=== PATIENT | male | born 1955 | race Caucasian/White ===

== ENCOUNTER 2020-01-22 07:30 | Outpatient (CLI) | payer BC, SELFPAY ==
--- NOTE | ~2020-01-22 | XR_ITS ---
EXAMINATION: XR chest 2V 01/22/2020 08:21 INDICATION: Malignant neoplasm of the left kidney PROCEDURE: 2 view chest COMPARISON: 03/10/2010 FINDINGS: The lungs are clear. The cardiomediastinal silhouette is within normal limits. There are no pleural effusions. There is no pneumothorax suspected. IMPRESSION: 1: NO ACUTE CARDIOPULMONARY DISEASE. Reviewed, dictated and finalized at location B.
--- NOTE | ~2020-01-22 | CT_ITS ---
EXAMINATION: CT abdomen wo/w con DATE: 01/22/2020 08:21 INDICATION: Malignant neoplasm of left kidney TECHNIQUE: Computed tomography (CT) of the abdomen and pelvis was performed without intravenous contr ast. Automated exposure control and iterative reconstruction technique were employed. Exam dose: 816 .50 mGy-cm total exam DLP. COMPARISON: 12/22/2018 CT abdomen FINDINGS: The lung bases are clear. Normal heart size. No pericardial or pleural effusion. There is hepatic steatosis. No hepatic, splenic, pancreatic or adrenal space-occupying mass lesion. T he gallbladder is present. No bile duct dilatation or pancreatic duct dilatation or pancreatic calcif ication. Partial left nephrectomy. Small stable probable right renal cyst. No urinary tract calculus or hydrou reteronephrosis. There is atherosclerotic calcification of the abdominal aorta. No intraperitoneal or retroperitoneal mass lesion or adenopathy or ascites. Diverticulosis of the colon. No bowel obstruction, bowel wall thickening, pneumatosis or intraperiton eal free air. Small fat-containing umbilical hernia. Diffuse idiopathic skeletal hyperostosis of the thoracic spine. There are mild degenerative changes o f the lumbar spine. There is prominent degenerative change at the apophyseal joints of the lower lumb ar and lumbosacral area with associated grade 1 anterolisthesis at L4-5. IMPRESSION: Hepatic steatosis Status post left partial nephrectomy for history of renal cancer; no recurrence evident Stable small right renal probable cysts Diverticulosis of the colon Reviewed, dictated and finalized at Location A. Reviewed, dictated and finalized at location A.
[2020-01-22 08:08] LABS: Estimated Glomerular Filt Rate > 60
== END 2020-01-22 07:31 | disposition home or self-care (01) ==
LOC: ANHIMG 07:37
PROVIDERS: PCP Family Medicine; Visit Provider Urology
DX: C64.2 Malignant neoplasm of left kidney, except renal pelvis (principal); K57.30 Diverticulosis of large intestine without perforation or abscess without bleeding; K76.0 Fatty (change of) liver, not elsewhere classified
CPT/HCPCS: 36415; 71046; 74170; Q9967

== ENCOUNTER 2020-04-29 01:09 | Outpatient (CLI) | payer BC, SELFPAY ==
[2020-04-29 17:41] LABS: SARS-CoV-2 RNA PCR Negative
== END 2020-04-29 01:10 | disposition home or self-care (01) ==
LOC: ANHCOVIDDT 01:09
PROVIDERS: PCP Family Medicine; Visit Provider Internal Medicine Gastroenterology
DX: Z20.828 Contact with and (suspected) exposure to other viral communicable diseases (principal); Z01.812 Encounter for preprocedural laboratory examination
CPT/HCPCS: 87635; C9803; U0003

== ENCOUNTER 2020-05-01 01:19 | Day surgery (SDC) | payer BC, SELFPAY ==
[2020-04-24 14:30] VITALS: BMI 27.8
[2020-05-01 08:16] VITALS: BP 141/89; PULSE 63; RESP 16; TEMP 36.6; O2SAT 100; BMI 27.5
[2020-05-01] MEDS: LACTATED RINGERS 1,000 ML 150 ML IV CONT (08:28)
--- NOTE | 2020-05-01 08:39 | P.PNAN_ITS ---
Anes - Initial Pre Proc Eval Procedure: Operation Date: 05/01/20 09:00 Proposed Procedures p Screening Colonoscopy - Michael Shepherd MD Date/Time: 05/01/20 08:39 Surgeon: Michael Shepherd MD Pre Op Diagnosis: Neoplasm Screening Patient Data Age: 65 Gender: M Height: 5 ft 10 in Weight: 87.1 kg Last Vital Signs Temp 97.9 F 05/01/20 08:16 Pulse 63 05/01/20 08:16 Resp 16 05/01/20 08:16 BP 141/89 H 05/01/20 08:16 Pulse Ox 100 05/01/20 08:16 Allergies Allergy/AdvReac Type Severity Reaction Status Date / Time Bumble Bee Allergy Severe Anaphylaxis Uncoded 05/01/20 08:15 Wasp Allergy Severe Anaphylaxis Uncoded 05/01/20 08:15 Home Medications Medication Instructions Recorded Confirmed Type No Home Medications 04/24/20 04/24/20 History Patient hx anesthesia problems: none Family hx anesthesia problems: none PMFSH Past Medical History Medical History (Updated 03/19/20 @ 10:18 by Kendall Calixto MD) Malignant neoplasm of left kidney Right kidney stone (~07/2008) Spontaneous pneumothorax (~03/01/91) right Surgical History Surgical History (Updated 03/19/20 @ 10:18 by Kendall Calixto MD) History of bladder surgery stone removal 01/2018 History of partial nephrectomy 06/2018 - Left lower kidney tumor removal [place] teeth extracted Family History Family History Mother Diabetes mellitus Family history of cardiovascular disease Family history of Parkinson's disease Father Hypertension Family history of primary malignant neoplasm of liver Family history of malignant neoplasm of kidney Social History Social History Smoking status: Never smoker Second hand tobacco smoke exposure: No Alcohol intake: current Substance use: never Substance use type: does not use Living arrangements: with family Gender identity (if verbalized by the patient): Male Spiritual care concerns: No Anes - Eval Final PreProcedure Day of Procedure 05/01/20 08:39 Patient weight: normal Heart: regular rate and rhythm Lungs: clear to auscultation Airway: Mallampati scale class II Neurological: alert and oriented Last oral intake: >/= 8 hours ASA classification: II Emergent: no Anesthetic plan: proceed Anesthesia type and monitoring: general GIVS and standard monitoring Informed Consent: The patient's anesthetic plan and its attendant risks and benefits were discussed with the patient/family/POA. Questions were solicited and answers provided to the satisfaction of the patient/family/POA.
--- NOTE | 2020-05-01 08:49 | PM.HPGS ---
History of Present Illness History of Present Illness Consent: Risks, benefits, and alternatives have been discussed and questions answered. Patient agrees to proceed with procedure. Chief complaint: Neoplasm Screening Narrative: Wallace Rm is a 65 year old male here for first screening colonoscopy Review of Systems Constitutional: Constitutional: Denies headache(s) and Denies weakness Eyes: Eyes: Denies blurry vision ENT: Reports Normal hearing present, Denies headache(s) and Denies neck pain Cardiovascular: Cardiovascular: Denies chest pain and Denies dyspnea Respiratory: Respiratory: Denies dyspnea Gastrointestinal: Gastrointestinal: Reports no additional gastrointestinal complaints Genitourinary: Genitourinary: Denies dysuria Musculoskeletal: Musculoskeletal: Denies neck pain Integumentary/Breasts: Skin/Breast: Denies dry skin Neurologic: Reports Normal hearing present, Denies headache(s) and Denies weakness Psychiatric: Psychiatric: Denies anxiety Endocrine: Endocrine: Denies change in body appearance Hematologic/Lymphatic: Hematologic/Lymphatic: Denies easy bleeding Allergic/Immunologic: Allergic/Immunologic: Denies urticaria PMFSH Past Medical History Medical History (Updated 05/01/20 @ 08:50 by Michael Shepherd MD) Colon cancer screening Malignant neoplasm of left kidney Right kidney stone (~07/2008) Spontaneous pneumothorax (~03/01/91) right Surgical History Surgical History (Updated 03/19/20 @ 10:18 by Kendall Calixto MD) History of bladder surgery stone removal 01/2018 History of partial nephrectomy 06/2018 - Left lower kidney tumor removal [place] teeth extracted Family History Family History Mother Diabetes mellitus Family history of cardiovascular disease Family history of Parkinson's disease Father Hypertension Family history of primary malignant neoplasm of liver Family history of malignant neoplasm of kidney Social History Social History Smoking status: Never smoker Second hand tobacco smoke exposure: No Alcohol intake: current Substance use: never Substance use type: does not use Living arrangements: with family Gender identity (if verbalized by the patient): Male Spiritual care concerns: No Meds Home Medications and Allergies Home Medications Medication Instructions Recorded Confirmed Type No Home Medications 04/24/20 04/24/20 History Allergies Allergy/AdvReac Type Severity Reaction Status Date / Time Bumble Bee Allergy Severe Anaphylaxis Uncoded 05/01/20 08:15 Wasp Allergy Severe Anaphylaxis Uncoded 05/01/20 08:15 Vital Signs Vital Signs - 24 hr 05/01/20 08:16 Temperature 97.9 F Pulse Rate 63 Respiratory Rate 16 Blood Pressure 141/89 H Pulse Oximetry 100 Exam Const: General: comfortable and no acute distress HENMT: General nose exam: Normal nares present Eyes: General: appearance normal, both eyes and all related structures Neck: Neck: no JVD Resp: Auscultation: clear to auscultation bilaterally Cardio: Rate: regular rate Rhythm: regular rhythm GI: Inspection: non-distended GI Palp: Yes Soft to palpation Skin: General skin exam: normal color Neuro: General: gait normal Speech: normal speech Extrem: General: normal to inspection Psych: Mental Status: mental status grossly normal Assessment and Plan Assessment and plan (1) Colon cancer screening: Code(s): Z12.11 - Encounter for screening for malignant neoplasm of colon Status: Acute Assessment and Plan: will proceed with colonoscopy
[2020-05-01 09:11] VITALS: BP 112/76; PULSE 57; RESP 14; O2SAT 98
[2020-05-01 09:20] VITALS: BP 107/73; PULSE 53; RESP 23; O2SAT 97
[2020-05-01 09:30] VITALS: BP 156/89; PULSE 57; RESP 13; O2SAT 99
== END 2020-05-01 09:37 | disposition home or self-care (01) ==
PROVIDERS: PCP Family Medicine; Visit Provider Internal Medicine Gastroenterology
PROC: 0DJD8ZZ Inspection of Lower Intestinal Tract, Via Natural or Artificial Opening Endoscopic (ICD-10-PCS; CPT 45378; principal; 2020-05-01 09:00)
DX: Z12.11 Encounter for screening for malignant neoplasm of colon (principal); K64.8 Other hemorrhoids; Z85.528 Personal history of other malignant neoplasm of kidney; Z90.5 Acquired absence of kidney
CPT/HCPCS: 45378; J2704; J7120

== ENCOUNTER → 2020-10-29 07:07 | Outpatient (CLI) | payer BC, SELFPAY ==
--- NOTE | ~2020-10-29 | XR_ITS ---
EXAMINATION: XR knee RT min 4V DATE: 10/29/2020 08:46 INDICATION: Right knee pain. TECHNIQUE: 4 views of right knee were obtained. COMPARISON: None. FINDINGS: There is varus angulation at the knee. No fracture. There is severe osteoarthritis of media l compartment, moderate osteoarthritis of patellofemoral compartment, and mild osteoarthritis of late ral compartment. There is a small knee joint effusion. IMPRESSION: 1. Severe right knee osteoarthritis. 2. Small right knee joint effusion. Reviewed, dictated and finalized at location B.
== END ==
PROVIDERS: Visit Provider Chiropractor
DX: M17.11 Unilateral primary osteoarthritis, right knee (principal); M25.461 Effusion, right knee
CPT/HCPCS: 73564

== ENCOUNTER → 2021-01-27 09:07 | Outpatient (CLI) | payer BC, SELFPAY ==
--- NOTE | ~2021-01-27 | XR_ITS ---
EXAMINATION: XR chest 2V DATE: 01/27/2021 09:46 INDICATION: Malignant neoplasm of the left kidney TECHNIQUE: PA and lateral views of the chest are obtained. COMPARISON: 01/22/2020 FINDINGS: The lungs are free of acute opacities. There is no pleural effusion or pneumothorax. The ca rdiomediastinal silhouette is normal. There is moderate thoracic spondylosis. IMPRESSION: 1. No acute cardiopulmonary abnormality. Reviewed, dictated and finalized at location B.
== END ==
PROVIDERS: PCP Family Medicine; Visit Provider Urology
DX: C64.2 Malignant neoplasm of left kidney, except renal pelvis (principal)
CPT/HCPCS: 71046

== ENCOUNTER 2023-06-17 10:11 | Outpatient (RCR) | payer MEDICARE, OTHER, SELFPAY ==
--- NOTE | 2023-06-17 12:05 | OPREHPOC ---
Outpatient Therapy Plan of Care This is a Multidisciplinary Plan of Care that may contain components documented by all disciplines (PT, OT, and ST.) PT Problem 1 PT Problem #1 Knowledge Deficit PT Goal 1 Goal The patient will be independent in a home exercise program. Target Visit 10 PT Problem 2 PT Problem #2 Impaired Range of Motion PT Goal 1 Goal The patient will demonstrate 0-120 degrees of right knee AROM to normalize gait and stair negotiation. Target Visit 10 PT Problem 3 PT Problem #3 Impaired Strength PT Goal 1 Goal The patient will demonstrate 5/5 right LE strength to improve functional abilities. Target Visit 10 PT Problem 4 PT Problem #4 Impaired Gait PT Goal 1 Goal The patient will ambulate 1,200 feet without an AD during the 6 minute walk test to improve community ambulation ability. Target Visit 10 PT Problem 5 PT Problem #5 Impaired Functional Mobil PT Goal 1 Goal The patient will ascend and descend a flight of stairs with a reciprocal pattern. Target Visit 10
--- NOTE | 2023-06-17 12:05 | PTOPEVAL1 ---
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 He reports he was doing really well and bending to 122 degrees but then he had his mary taken out and his incision re-opened. He then had to be put in an immobilizer for 2 weeks while the incision closed. He saw his sureon on and the incision is healed so he was taken out of the immobilizer and was told he could start outpatient PT. He was able to bend 90 degrees yesterday at the surgeon's office. He is reporting no pain in his right knee at all times. He does have difficulty going up and down stairs but otherwise feels he has no limitations with walking . 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 Reported Pain Level Pain Score 0: Self Report Assessment PT Clinical Summary Wallace Rm presents 4 weeks s/p R TKA. 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 He demonstrates decreased right knee flexion AROM, decreased right knee and hip strength, right knee edema, and impaired gait. He will benefit from skilled PT to address these limitations and return him to his PLOF. Plan of Care Interventions Electrical Stimulation,Gait Training,Hot Pack/Cold Pack,Intermittent Compression,Neuro Re-education, Patient/Caregiver Educati,Therapeutic Activities, Therapeutic Exercise PT Services Indicated Yes Treatment Frequency and 2 times a week for 10 visits Duration These treatments will address the objective and functional deficits as defined above. The patient will be advanced safely and appropriately in order for the patient to progress towards his/her prior level of function. Additional exercises will be introduced and as well as a comprehensive home exercise program upon discharge, if needed, ?to ensure carryover of functional gains achieved in the clinic. This treatment plan has been reviewed and agreement upon by the patient.
--- NOTE | 2023-07-20 08:18 | OPREHPOC ---
Outpatient Therapy Plan of Care This is a Multidisciplinary Plan of Care that may contain components documented by all disciplines (PT, OT, and ST.) PT Problem 1 PT Problem #1 Knowledge Deficit PT Goal 1 Goal The patient will be independent in a home exercise program. Target Visit 10 Progress Met PT Problem 2 PT Problem #2 Impaired Range of Motion PT Goal 1 Goal The patient will demonstrate 0-120 degrees of right knee AROM to normalize gait and stair negotiation. Target Visit 10 Progress Met PT Problem 3 PT Problem #3 Impaired Strength PT Goal 1 Goal The patient will demonstrate 5/5 right LE strength to improve functional abilities. Target Visit 10 Progress Met PT Problem 4 PT Problem #4 Impaired Gait PT Goal 1 Goal The patient will ambulate 1,200 feet without an AD during the 6 minute walk test to improve community ambulation ability. Target Visit 10 Progress Met PT Problem 5 PT Problem #5 Impaired Functional Mobil PT Goal 1 Goal The patient will ascend and descend a flight of stairs with a reciprocal pattern. Target Visit 10 Progress Met
--- NOTE | 2023-07-20 08:18 | PTOPDC ---
Assessment and note entered by Shaunna Randall, PT Evaluation Information Assessment Status Discharge Diagnosis R TKA Onset 05/20/23 Subjective Information Wallace Rm reports his right knee is doing well . 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 He notes his left knee is now what holds him back. He'll see his surgeon again in November 2023. Reported Pain Level Pain Score 0: Self Report Assessment PT Clinical Summary Wallace Rm has completed 10 skilled PT visits following a right TKA. He is reporting no pain in the right knee and he is able to perform all previous daily and job tasks without difficulty. He objectively demonstrates good knee and hip strength, normal gait, good balance, and functional right knee AROM. He will be discharged to an independent [facility]. Plan of Care PT Services Indicated No
== END 2023-07-20 15:39 | disposition home or self-care (01) ==
LOC: CHSPT 10:11
DX: Z47.1 Aftercare following joint replacement surgery (principal); Z96.651 Presence of right artificial knee joint
CPT/HCPCS: 97110; 97112; 97161; 97530

== ENCOUNTER 2023-06-21 08:13 | Outpatient (CLI) | payer MEDICARE, OTHER, SELFPAY ==
[2023-06-21 18:44] LABS: Basophils Percent Auto 0.4 % (0.2-1.2); Eosinophils Absolute Auto 0.2 K/mm3 (0-0.3); Eosinophils Percent Auto 2.8 % (0-4.4); Hematocrit 36.7 % (42.0-52.0); Hemoglobin 12.1 g/dL (14.0-18.0); Immature Granulocyte Absolute 0.03 K/mm3 (0.00-0.031); Immature Granulocyte Percent A 0.4 % (0-0.5); Lymphocytes Absolute Auto 2.56 K/mm3 (0.9-3.2); Lymphocytes Percent Auto 36.1 % (18.3-44.2); Mean Corpuscular Hemoglobin 31.6 pg (26-34); Mean Corpuscular Volume 95.8 fl (80-100); Mean Platelet Volume 9.7 fl (7.4-10.4); Monocytes Absolute Auto 0.6 K/mm3 (0.1-0.6); Monocytes Percent Auto 8.3 % (2.6-8.5); Neutrophils Absolute Auto 3.7 K/mm3 (1.3-6.7); Platelet Count Result 218 k/mm3 (150-375); Red Blood Count 3.83 M/mm3 (4.6-6.20); Red Cell Distribution Width 12.7 % (11.5-14.5); White Blood Count 7.1 K/mm3 (4.5-10.0)
[2023-06-21 19:20] LABS: Alanine Aminotransferase 25 U/L (6-50); Albumin Level 4.2 g/dL (3.5-5.1); Alkaline Phosphatase 86 U/L (38-126); Anion Gap 7 mmol/L (8-16); Aspartate Amino Transferase 33 U/L (17-59); Bilirubin,Total 0.7 mg/dL (0.2-1.3); Blood Urea Nitrogen 19 mg/dL (9-20); Calcium 9.2 mg/dL (8.4-10.2); Carbon Dioxide 27 mmol/L (22-30); Chloride 105 mmol/L (98-107); Cholesterol 216 mg/dL (0-200); Estimated Glomerular Filt Rate > 60; Glucose 84 mg/dL (65-110); HDL Direct 52 mg/dL; Potassium 3.9 mmol/L (3.4-5.0); Sodium 139 mmol/L (137-145); Triglycerides 124 mg/dL (<150)
[2023-06-21 19:36] LABS: LDL Cholesterol Direct 126 mg/dL; Vitamin D 25 Hydroxy 40.5 ng/mL
[2023-06-21 19:55] LABS: Prostate Specific Antigen 0.7 ng/mL (< OR = 4.0)
== END 2023-06-21 08:14 | disposition home or self-care (01) ==
LOC: ANHGOSHLAB 08:15
PROVIDERS: Visit Provider Family Medicine
DX: Z12.5 Encounter for screening for malignant neoplasm of prostate (principal); E78.5 Hyperlipidemia, unspecified; E53.8 Deficiency of other specified B group vitamins; E55.9 Vitamin D deficiency, unspecified; I10 Essential (primary) hypertension
CPT/HCPCS: 36415; 80053; 80061; 82306; 82607; 84153; 84443; 85025; G0103

== ENCOUNTER 2023-12-14 09:13 | Outpatient (CLI) | payer MEDICARE, OTHER, SELFPAY ==
[2023-12-14 13:28] LABS: Hematocrit 40.2 % (42.0-52.0); Hemoglobin 13.4 g/dL (14.0-18.0); Mean Corpuscular HGB Conc 33.3 g/dl (32-36); Mean Corpuscular Hemoglobin 31.8 pg (26-34); Mean Corpuscular Volume 95.3 fl (80-100); Platelet Count Result 238 k/mm3 (150-375); Red Blood Count 4.22 M/mm3 (4.6-6.20); White Blood Count 7.7 K/mm3 (4.5-10.0)
[2023-12-14 13:36] LABS: Alanine Aminotransferase 26 U/L (6-50); Albumin Level 4.6 g/dL (3.5-5.1); Alkaline Phosphatase 75 U/L (38-126); Anion Gap 8 mmol/L (4-12); Aspartate Amino Transferase 45 U/L (17-59); Bilirubin,Total 0.6 mg/dL (0.2-1.3); Blood Urea Nitrogen 16 mg/dL (9-20); Calcium 9.3 mg/dL (8.4-10.2); Carbon Dioxide 26 mmol/L (22-30); Chloride 106 mmol/L (98-107); Cholesterol 195 mg/dL (0-200); Estimated Glomerular Filt Rate > 60; Glucose 85 mg/dL (65-110); HDL Direct 53 mg/dL; Potassium 4.1 mmol/L (3.4-5.0); Sodium 140 mmol/L (137-145); Triglycerides 176 mg/dL (<150)
[2023-12-14 13:46] LABS: LDL Cholesterol Direct 113 mg/dL
[2023-12-14 14:03] LABS: Prostate Specific Antigen 0.5 ng/mL (< OR = 4.0)
[2023-12-14 14:07] LABS: Iron 97 ug/dL (49-181)
[2023-12-14 14:16] LABS: Percent Iron Saturation 27 % (20-50)
== END 2023-12-14 09:14 | disposition home or self-care (01) ==
LOC: ANHGOSHLAB 09:15
PROVIDERS: PCP Family Medicine; Visit Provider Nurse Practitioner
DX: I10 Essential (primary) hypertension (principal); D64.9 Anemia, unspecified; Z12.5 Encounter for screening for malignant neoplasm of prostate
CPT/HCPCS: 36415; 80053; 80061; 82728; 83540; 83550; 84153; 84443; 85027; G0103

== ENCOUNTER 2024-07-03 09:32 | Outpatient (RCR) | payer MEDICARE, OTHER, SELFPAY ==
--- NOTE | 2024-07-03 10:24 | PTOPEVAL1 ---
Assessment and note entered by Wallace Siddiqui Evaluation Information Assessment Status Evaluation Diagnosis s/p L TKA ICD-10 Condition Codes (PT) Aftercare following joint replacement surgery Z47. 1 Onset 06/13/24 Subjective Information Pt. reports that he underwent left TKA on `06/13/24 . He reports that he did home health therapy until last week. He reports that he is not using an AD and has returned to driving. He reports that he had 118 degrees flexion last home health visit. He still notices some edema around the left knee. He states that he is doing his HEP 2x/ day. He reports that he has stairs in his home and still has weakness with going up and down stairs. He reports that he still works, but does not do any heavy lifting. He reports that his goal is to improve his strength Reported Pain Level Pain Score 1: Self Report Assessment PT Clinical Summary Pt. is a 69 year old male 3 weeks post left TKA. He presents with impaired ROM, impaired l.e. strength, impaired gait and edema on this date. continued skilled PT is indicated in order to improve pt. comfort and ability to participate in IADL's. Plan of Care PT Services Indicated Yes Treatment Frequency and 2x/week x 10 visits Duration These treatments will address the objective and functional deficits as defined above. The patient will be advanced safely and appropriately in order for the patient to progress towards his/her prior level of function. Additional exercises will be introduced and as well as a comprehensive home exercise program upon discharge, if needed, ?to ensure carryover of functional gains achieved in the clinic. This treatment plan has been reviewed and agreement upon by the patient.
--- NOTE | 2024-07-03 10:25 | OPREHPOC ---
Outpatient Therapy Plan of Care This is a Multidisciplinary Plan of Care that may contain components documented by all disciplines (PT, OT, and ST.) PT Problem 1 PT Problem #1 Knowledge Deficit PT Goal 1 Goal / Goal Update Pt. will be independent with a HEP focusing on strength and mobility christian Target Visit 2 PT Problem 2 PT Problem #2 Impaired Range of Motion PT Goal 1 Goal / Goal Update Pt. will achieve 0-125 degrees left knee active ROM to improve functional movement. Target Visit 10 PT Problem 3 PT Problem #3 Impaired Gait PT Goal 1 Goal / Goal Update Pt. will ambulate with equal right and left stance time. Pt. will navigate stairs with reciprocal pattern. Target Visit 10 PT Problem 4 PT Problem #4 Edema PT Goal 1 Goal / Goal Update Pt. will present with knee joint line girth measurements to 43 cm on the left. Target Visit 10
--- NOTE | 2024-08-03 08:48 | OPREHPOC ---
Outpatient Therapy Plan of Care This is a Multidisciplinary Plan of Care that may contain components documented by all disciplines (PT, OT, and ST.) PT Problem 1 PT Problem #1 Knowledge Deficit PT Goal 1 Goal / Goal Update Pt. will be independent with a HEP focusing on strength and mobility mormonism Target Visit 2 Progress Met PT Problem 2 PT Problem #2 Impaired Range of Motion PT Goal 1 Goal / Goal Update Pt. will achieve 0-125 degrees left knee active ROM to improve functional movement. Target Visit 10 Progress Met PT Problem 3 PT Problem #3 Impaired Gait PT Goal 1 Goal / Goal Update Pt. will ambulate with equal right and left stance time. Pt. will navigate stairs with reciprocal pattern. Target Visit 10 Progress Met PT Problem 4 PT Problem #4 Edema PT Goal 1 Goal / Goal Update Pt. will present with knee joint line girth measurements to 43 cm on the left. Target Visit 10 Progress Not Met
--- NOTE | 2024-08-03 08:49 | PTOPDC ---
Assessment and note entered by JT File, PT Evaluation Information Assessment Status Discharge Diagnosis s/p L TKA ICD-10 Condition Codes (PT) Aftercare following joint replacement surgery Z47. 1 Onset 06/13/24 Subjective Information patient reports he feels Great. he reports he was recently at the surgeons office who is happy with how the knee looks. he reports he walking normal, and able to go up and down steps without issues. he reports he does not follow up with his surgeon for 6 months. Reported Pain Level Pain Score 0: Self Report Assessment PT Clinical Summary mr. juárez presents to skilled PT for his 10th skilled therapy visit. he has achieved and met goals for rom, strength, gait mechanics, and HEP performance. he is only lacking in achievement of edema goal. he will DC skilled PT today, and continue with HEP independent at home. Plan of Care PT Services Indicated Yes
== END 2024-08-03 09:17 | disposition home or self-care (01) ==
LOC: CHSPT 09:32
DX: Z47.1 Aftercare following joint replacement surgery (principal); Z96.652 Presence of left artificial knee joint
CPT/HCPCS: 97014; 97016; 97110; 97161; G0283

== ENCOUNTER 2024-11-28 08:25 | Outpatient (CLI) | payer MEDICARE, OTHER, SELFPAY ==
--- OUTSIDE RECORDS SUMMARY | 2024-11-28 08:35 | XMS_ITS | Clinical Summary ---
Author Organization [facility] Address [address] [place] [address] Care Team Providers Care Certified Wellness Program Coordinator Name Role Phone Kali Calixto MD Primary Care Provider Allergies Active Allergy Reactions Criticality Noted Date Comments Bee Venom Hives,Swelling 07/20/2022 Medications multi vitamin/mineral s (THERA-M ENHANCED) tabletIndicatio ns:Mineral Abnormalities,M ineral Deficiency Take 3 tablets by mouth daily. Indications: Mineral Abnormalities, Mineral Deficiency NUTRIENT MULTIVITAMIN 950 - TAKES 3 DAILY Active MAGNESIUM ORIndications:M ineral Deficiency Indications: Mineral Deficiency Reacted magnesium 235 mg daily Active Vitamin D-Vitamin K (VITAMIN K2-VITAMIN D3 OR)Indications: Mineral Deficiency Indications: Mineral Deficiency Vitamin K2 with D3 125 mg daily Active TURMERIC-DORA -BLACK PEPPER ORIndications:M ineral Deficiency Take 3 tablets by mouth daily. Indications: Mineral Deficiency Anabolic health black dora. His does not contain turmeric Active amLODIPine (NORVASC) 10 MG tabletIndicatio ns:Hypertension Take 1 tablet (10 mg total) by mouth daily. Indications: High Blood Pressure 3 Active lisinopril (PRINIVIL) 20 MG tabletIndicatio ns:Hypertension Take 1 tablet (20 mg total) by mouth nightly. Indications: High Blood Pressure 4 Active Misc Natural Products (NF FORMULAS TESTOSTERONE) CapIndications: Hormone Deficiency Take by mouth daily. Indications: Hormone Deficiency Active Red Yeast Rice Extract (RED YEAST RICE OR)Indications: Mineral Deficiency Indications: Mineral Deficiency Active losartan (COZAAR) 100 MG tabletIndicatio ns:Blood Pressure Take 0.5 tablets (50 mg total) by mouth daily. Indications: Blood Pressure 4 Active acetaminophen-c odeine (TYLENOL #3) 300-30 MG tablet TAKE 1 TO 2 TABLETS BY MOUTH THREE TIMES DAILY NEEDED FOR PAIN 4 Active metoprolol succinate ER (TOPROL-XL) 25 MG 24 hr tablet Take 0.5 tablets (12.5 mg total) by mouth daily. 4 Active simvastatin (ZOCOR) 40 MG tablet Take 1 tablet (40 mg total) by mouth daily. 4 Active aspirin EC (ECOTRIN) 81 MG tablet Take 1 tablet (81 mg total) by mouth daily. Active Active Problems Problem Noted Date Diagnosed Date Status post total knee replacement, left 024 Primary osteoarthritis of left knee 05/18/2024 Status post total right knee replacement 023 Primary osteoarthritis of right knee 02/24/2023 Overview (02/24/2023): Added automatically from request for surgery [id number] Hypertrophy of prostate with urinary obstruction 07/27/2022 Encounters Date Type Department Care Team Description 09/07/2024 Telephone [facility] - [address] [address] Jani Campbell MD from Last 3 Months Family History Medical History Relation Comments Heart Attack Brother Heart Disease Brother heart attack Arthritis Father Cancer Father cancer of kidney lung liver Hypertension Father Diabetes Mother Heart Disease Mother 3 vessel CABG ag e 79 Hypertension Mother Hypertension Sister Relation Status Comments Brother Daughter 1 Alive Daughter 2 Alive Father tumor/cancer of kidney lungs liver Mother (Age 90) AFTER A S TROKE Sister Son Alive Social History Tobacco Use Types Packs/Day Years Used Date Smoking Tobacco: Never Passive Smoke Exposure: Never Smokeless Tobacco: Never Tobacco Cessation:Counseling Given: No Comments:non smoker Alcohol Use Standard Drinks/Week Comments Yes 0 (1 standard drink = 0.6 oz pur e alcohol) maybe 20 beers a year OASIS D0700: Social Isolation Answer Da te Recorded Frequency of experiencing loneliness or isolatio n Never 06/30/2024 OASIS A1250: Transportation Answer Date Recorded Lack of Transportation (Medical) No 06/30/2024 Lack of Transportation (Non-Medical) No 06/30/2024 Patient Unable or Declines to Respond No 06/30/2024 OASIS B1300: Health Literacy Answer Larry e Recorded Frequency of needing help to read materials from doctor or pharmacy Never 06/30/2024 PHQ-2 Answer Date Recorded Patient Health Questionnaire-2 Score 0 07/31/2024 Sex and Gender Information Value Date Recorded Sex Assigned at Not on file Legal Sex Male 1:27 PM CDT Gender Identity Not on file Sexual Orientation Not on file Last Filed Vital Signs Vital Sign Reading Time Taken Comments Blood Pressure 156/86 07/31/2024 9:24 AM [employer] Pulse 70 07/31/2024 9:24 AM [employer] Temperature 37 C (98.6 F) 07/31/2024 8:54 AM [employer] Respiratory Rate 18 06/30/2024 9:56 AM [employer] Oxygen Saturation 98% 06/30/2024 9:56 AM [employer] Inhaled Oxygen Concentration - - Weight 96.1 kg (211 lb 12.8 oz) 07/31/2024 8:54 AM [employer] Height 177.8 cm (5' 10 ) 06/28/2024 9:14 AM [employer] Body Mass Index 30.39 06/28/2024 9:14 AM [employer] Plan of Treatment Upcoming Encounters Date Type Department Care Team (Late st Contact Info) Description 12/06/2024 7:40 AM CDT Office Visit [facility] - [place] [address] [place] [address] Jani Campbell MD [address] [place] [address] Health Maintenance Due Date Last Done Comments Colorectal Cancer Screening Colonoscopy (10 Years) 1955 Hepatitis C 1974 DTaP, Tdap and Td Vaccines ( 1 - Tdap) 1975 Pneumococcal Vaccine: 50+ Ye ars (1 of 1 - PCV) 2006 Zoster Vaccines (1 of 2) 2006 Annual Medicare Wellness Visit 2021 COVID-19 Vaccine (2023-2 5 season) 2024 RSV Immunization or 60+ Years (1 - 1-dose 75+ series) 2031 PHQ-2 (Physician [place]) Completed 07/31/2024 Meningococcal B Vaccine Aged Out No l onger eligible based on patient's age to complete this topic Meningococcal Vaccine Aged Out No leora deena eligible based on patient's age to complete this topic RSV Immunizations Under 20 Months Aged Out No longer eligible based on patient's age to complete this topic Goals Goal Patient Goal Type Associated Problems Recent Progress Patient-Stated? Author Patient will return to prior living situation and remain independent in ADLs upon discharge from hospital Lifestyle No Annelise Sheth RN Autogenerated Goal Care Plan Autogenerated Problem No Phoebe Padron RN Medical Devices Implanted Type Area Business Programmer Device Identifier Shelf Expiration Date Model / Serial / Lot Cement Full Dose - [id number] Implanted:Qt y: 2 on 05/20/2023 by Jani Campbell MD at [facility] Cement Implant Right: Knee [employer] [id number] 07/11/2025 [id number] / / [id number] Component Femoral 9 Standard Knee Right Cruciate Retain Cement Persona Cocr - [id number] Implanted:Qt y: 1 on 05/20/2023 by Jani Campbell MD at [facility] Knee Components Right: Knee [employer] [id number] 12/20/2032 [id number] / / [id number] Tibia Stemmed Base Bassem Persona Size E Right - [id number] Implanted:Qt y: 1 on 05/20/2023 by Jani Campbell MD at [facility] Knee Components Right: Knee [employer] [id number] 03/20/2033 [id number] / / [id number] Insert Articular 8-11 E-F 10mm Kn Rt Vivacit-E Persona Strl - [id number] Implanted:Qt y: 1 on 05/20/2023 by Jani Campbell MD at [facility] Knee Components Right: Knee [employer] [id number] 11/06/2027 [id number] / / [id number] Femoral Porocoat Posterior Stabilized 6 Left Cementless Implanted:Qt y: 1 on 06/13/2024 by Jani Campbell MD at [facility] Knee Components Left: Knee [employer] [id number] 07/11/2030 1504-11-106 / / [id number] Tubial Base Affixium Fixed Bearing Size 6 Implanted:Qt y: 1 on 06/13/2024 by Jani Campbell MD at [facility] Knee Components Left: Knee [employer] [id number] 01/08/2034 1506-21-006 / / [id number] Attune Tibial Insert Fixed Bearing Posterior Stabilized Size 6 5mm Implanted:Qt y: 1 on 06/13/2024 by Jani Campbell MD at [facility] Knee Components Left: Knee [employer] 01/08/2029 [id number] / / [id number] Additional Health Concerns Active Problems Noted Date Diagnosed Date Autogenerated Problem 11/11/2024 Insurance MEDICARE [facility] Advance Directives * Full Code (Latest Code Status on File) Date Activated Date Inactivated Comments 06/15/2024 1:12 PM * Full Code Date Activated Date Inactivated Comments 06/11/2023 4:09 PM 05/31/2024 8:21 AM * Full Code Date Activated Date Inactivated Comments 05/22/2023 9:17 AM 05/24/2023 8:24 AM * Full Code Date Activated Date Inactivated Comments 07/27/2022 5:40 PM 07/28/2022 1:22 PM Care Teams Certified Wellness Program Coordinator Relationship Specialty Start Date End Date Kali Calixto MD [address] [place] [address] PCP - General FAMILY PRACTICE 01/08/21
[2024-11-28 13:25] LABS: Basophils Percent Auto 0.2 % (0.2-1.2); Eosinophils Absolute Auto 0.1 K/mm3 (0-0.3); Eosinophils Percent Auto 1.6 % (0-4.4); Hemoglobin 14.2 g/dL (14.0-18.0); Immature Granulocyte Absolute 0.03 K/mm3 (0.00-0.031); Immature Granulocyte Percent A 0.4 % (0-0.5); Lymphocytes Absolute Auto 2.76 K/mm3 (0.9-3.2); Lymphocytes Percent Auto 33.7 % (18.3-44.2); Mean Corpuscular Volume 93.9 fl (80-100); Mean Platelet Volume 10.2 fl (7.4-10.4); Monocytes Absolute Auto 0.7 K/mm3 (0.1-0.6); Monocytes Percent Auto 8.5 % (2.6-8.5); Neutrophils Absolute Auto 4.6 K/mm3 (1.3-6.7); Neutrophils Percent Auto 55.6 % (45.5-73.1); Platelet Count Result 242 k/mm3 (150-375); Red Blood Count 4.58 M/mm3 (4.6-6.20); Red Cell Distribution Width 13.2 % (11.5-14.5); White Blood Count 8.2 K/mm3 (4.5-10.0)
[2024-11-28 13:39] LABS: Alanine Aminotransferase 33 U/L (6-50); Albumin Level 4.7 g/dL (3.5-5.1); Alkaline Phosphatase 64 U/L (38-126); Anion Gap 9 mmol/L (4-12); Aspartate Amino Transferase 42 U/L (17-59); Bilirubin,Total 0.7 mg/dL (0.2-1.3); Blood Urea Nitrogen 22 mg/dL (9-20); Calcium 9.1 mg/dL (8.4-10.2); Carbon Dioxide 28 mmol/L (22-30); Chloride 102 mmol/L (98-107); Cholesterol 229 mg/dL (0-200); Estimated Glomerular Filt Rate > 60; Glucose 82 mg/dL (65-110); HDL Direct 53 mg/dL; Potassium 4.3 mmol/L (3.4-5.0); Sodium 139 mmol/L (137-145); Triglycerides 189 mg/dL (<150)
[2024-11-28 13:54] LABS: LDL Cholesterol Direct 121 mg/dL; Vitamin D 25 Hydroxy 61.5 ng/mL
[2024-11-28 14:12] LABS: Prostate Specific Antigen 0.4 ng/mL (< OR = 4.0)
[2024-11-28 14:54] LABS: Hemoglobin A1C 5.6 % (<5.7)
== END 2024-11-28 08:26 | disposition home or self-care (01) ==
LOC: ANHGOSHLAB 08:26
PROVIDERS: Visit Provider Family Medicine
DX: E78.5 Hyperlipidemia, unspecified (principal); I10 Essential (primary) hypertension; E55.9 Vitamin D deficiency, unspecified; R73.9 Hyperglycemia, unspecified; E53.8 Deficiency of other specified B group vitamins; Z12.5 Encounter for screening for malignant neoplasm of prostate
CPT/HCPCS: 36415; 80053; 80061; 82306; 82607; 83036; 84153; 84443; 85025; G0103